=== PATIENT | male | born 1970 | race Caucasian/White ===

== ENCOUNTER 2018-04-12 18:52 | Inpatient (IN) | payer OTHER ==
[2018-04-12] MEDS ORDERED: ACETAMINOPHEN 325 MG TAB PO (20:00)
[2018-04-12] MEDS ORDERED: DEXTROSE 5%-0.45% NACL 1,000 ML IV (20:00)
[2018-04-12] MEDS ORDERED: ONDANSETRON 4 MG INJ IV (20:00)
[2018-04-12] MEDS ORDERED: ONDANSETRON 4 MG INJ (20:39)
[2018-04-12] MEDS: morphine 2 MG INJ IV (20:44)
[2018-04-12] MEDS: PANTOPRAZOLE 40 MG INJ IV (20:54)
[2018-04-12] MEDS: INSULIN ASPART [NOVOLOG] 3 ML PEN SC (21:00)
[2018-04-12] MEDS ORDERED: GLUCAGON 1 MG INJ IM (21:00)
[2018-04-12] MEDS ORDERED: GLUCOSE GEL 15 GRAM TUBE BUCCAL (21:00)
[2018-04-12] MEDS ORDERED: GLUCOSE GEL 15 GRAM TUBE PO ×2 (21:00)
[2018-04-12] MEDS: CEFTRIAXONE 1 GM/50 ML (PMX) 50 ML IVPB (21:00)
[2018-04-12] MEDS ORDERED: DEXTROSE 50% 50 ML SYRINGE IV ×2 (21:00)
[2018-04-12] MEDS: DEXTROSE 5%-0.9% NACL 1,000 ML IV (21:05)
[2018-04-12] MEDS: traZODone 100 MG TAB PO (21:45)
[2018-04-12] MEDS ORDERED: morphine LIQ (10 MG/5 ML) CUP PO (23:30)
[2018-04-13] MEDS: ACCU-CHEK XX (02:00)
[2018-04-13] MEDS: morphine 2 MG INJ IV ×4 (02:48→20:59)
[2018-04-13] MEDS: PANTOPRAZOLE 40 MG INJ IV (06:14)
[2018-04-13 06:15] LABS: ADD MAN DIFF? NO
[2018-04-13 06:23] LABS: WHITE BLOOD COUNT 4.7 10^3/ul (4.8-10.8)
[2018-04-13 06:23] LABS: BASOPHILS % 0.2 % (0.0-2.0); EOSINOPHILS # 0.1 10^3/ul (0.0-0.5); EOSINOPHILS % 2.8 % (0.0-7.0); HEMATOCRIT 35.5 % (42.0-52.0); HEMOGLOBIN 12.2 g/dl (14.0-18.0); LYMPHOCYTES # 1.1 10^3/ul (0.8-2.9); LYMPHOCYTES % 23.9 % (15.0-51.0); MEAN CORPUSCULAR HEMOGLOBIN 29.8 pg (29.0-33.0); MEAN CORPUSCULAR HGB CONC 34.4 g/dl (32.0-37.0); MEAN CORPUSCULAR VOLUME 86.8 fl (82.0-101.0); MEAN PLATELET VOLUME 11.1 fl (7.4-10.4); MONOCYTE # 0.5 10^3/ul (0.3-0.9); MONOCYTES % 9.8 % (0.0-11.0); NEUTROPHILS % 63.1 % (39.0-77.0); PLATELET COUNT 147 10^3/UL (140-415); RED BLOOD COUNT 4.09 10^6/ul (4.70-6.10); RED CELL DISTRIBUTION WIDTH 14.3 % (11.5-14.5)
[2018-04-13 06:55] LABS: ALANINE AMINOTRANSFERASE 275 IU/L (13-69); ALBUMIN 3.5 g/dl (3.3-4.9); ALBUMIN/GLOBULIN RATIO 0.87; ALKALINE PHOSPHATASE 1013 IU/L (42-121); ANION GAP 14 (8-16); ASPARTATE AMINO TRANSFERASE 126 IU/L (15-46); BILIRUBIN,INDIRECT 1.2 mg/dl (0-1.1); BILIRUBIN,TOTAL 1.9 mg/dl (0.2-1.3); BLOOD UREA NITROGEN 5 mg/dl (7-20); CALCIUM 9.6 mg/dl (8.4-10.2); CARBON DIOXIDE 31 mmol/L (21-31); CHLORIDE 95 mmol/L (97-110); CREATININE 0.53 mg/dl (0.61-1.24); GLUCOSE 217 mg/dl (70-220); POTASSIUM 3.6 mmol/L (3.5-5.1); SODIUM 136 mmol/L (135-144); TOTAL PROTEIN 7.5 g/dl (6.1-8.1)
[2018-04-13] MEDS: INSULIN ASPART [NOVOLOG] 3 ML PEN SC ×4 (08:24→20:51)
[2018-04-13] MEDS: DEXTROSE 5%-0.9% NACL 1,000 ML IV ×2 (11:18→11:55)
[2018-04-13] MEDS: DIPHENHYDRAMINE 50 MG INJ IV (12:49)
[2018-04-13 14:51] LABS: PROTIME 12.2 Sec (11.9-14.9)
[2018-04-13 15:23] LABS: CARCINOEMBRYONIC ANTIGEN 1.8 ng/ml (0.0-5.0)
[2018-04-13 15:26] LABS: ALPHA FETOPROTEIN 0.85 IU/L (0.00-7.21)
[2018-04-13] MEDS: PIPER-TAZO 3.375 GM IV (PMX) 100 ML IVPB ×2 (15:35→22:54)
[2018-04-13 16:30] LABS: PROSTATE SPECIFIC ANTIGEN 0.7 ng/ml (0.0-4.0)
[2018-04-13] MEDS ORDERED: MIDAZOLAM 1 MG/ML 2 ML INJ (18:18)
[2018-04-13] MEDS ORDERED: ROCURONIUM 50 MG INJ (18:18)
[2018-04-13] MEDS ORDERED: NEOSTIGMINE 3 MG/3 ML SYRINGE (18:18)
[2018-04-13] MEDS ORDERED: ONDANSETRON 4 MG INJ (18:18)
[2018-04-13] MEDS ORDERED: CEFAZOLIN 1 GM INJ (18:18)
[2018-04-13] MEDS ORDERED: FENTAnyl 50 MCG/ML VIAL (18:18)
[2018-04-13] MEDS ORDERED: GLYCOPYRROLATE 0.4 MG INJ (18:18)
[2018-04-13] MEDS ORDERED: PROPOFOL 20 ML (18:18)
[2018-04-13] MEDS ORDERED: DEXAMETHASONE 4 MG/ML 1 ML INJ (18:18)
[2018-04-13] MEDS ORDERED: TRIMETHOBENZAMIDE 100 MG/ML VIAL IM (18:30)
[2018-04-13] MEDS ORDERED: ONDANSETRON 4 MG INJ IV (18:30)
[2018-04-13] MEDS ORDERED: DIPHENHYDRAMINE 50 MG INJ IV (18:30)
[2018-04-13] MEDS ORDERED: OXYCODONE/ACETAMINOPHEN (5/325) TAB PO ×2 (18:30)
[2018-04-13] MEDS ORDERED: IPRATROPIUM (NEB) 0.5 MG/2.5 ML AMP HHN (18:30)
[2018-04-13] MEDS ORDERED: EPHEDrine SULFATE 50 MG/5 ML SYG IV (18:30)
[2018-04-13] MEDS ORDERED: LABETALOL HCL 20MG INJ IV (18:30)
[2018-04-13] MEDS ORDERED: HYDROmorphONE 1 MG/5 ML IV SYRINGE IV ×3 (18:30)
[2018-04-13] MEDS: INDOMETHACIN 50 MG SUPP PR (18:30)
[2018-04-13] MEDS ORDERED: hydrALAzine 20 MG INJ IV (18:30)
[2018-04-13] MEDS ORDERED: ALBUTEROL 0.083% (NEB) 2.5 MG/3 ML AMP HHN (18:30)
[2018-04-13] MEDS ORDERED: MIDAZOLAM 1 MG/ML 2 ML INJ IV (18:30)
[2018-04-13] MEDS ORDERED: FENTAnyl 50 MCG/ML VIAL IV ×3 (18:30)
[2018-04-13] MEDS ORDERED: MEPERIDINE 25 MG INJ IV (18:30)
[2018-04-13] MEDS ORDERED: SUGAMMADEX SODIUM 200 MG/2 ML VIAL IV (19:26)
[2018-04-13] MEDS: traZODone 100 MG TAB PO (22:55)
[2018-04-14] MEDS: ACCU-CHEK XX (02:00)
[2018-04-14] MEDS: PIPER-TAZO 3.375 GM IV (PMX) 100 ML IVPB ×3 (05:57→21:53)
[2018-04-14] MEDS: DEXTROSE 5%-0.9% NACL 1,000 ML IV (05:59)
[2018-04-14] MEDS: PANTOPRAZOLE 40 MG INJ IV (06:00)
[2018-04-14] MEDS: morphine 2 MG INJ IV ×3 (06:04→20:26)
[2018-04-14 08:07] LABS: ADD MAN DIFF? NO
[2018-04-14 08:15] LABS: HEMATOCRIT 36.1 % (42.0-52.0); HEMOGLOBIN 12.2 g/dl (14.0-18.0); LYMPHOCYTES # 0.7 10^3/ul (0.8-2.9); LYMPHOCYTES % 20.2 % (15.0-51.0); MEAN CORPUSCULAR HEMOGLOBIN 29.8 pg (29.0-33.0); MEAN CORPUSCULAR HGB CONC 33.8 g/dl (32.0-37.0); MEAN PLATELET VOLUME 11.2 fl (7.4-10.4); MONOCYTE # 0.2 10^3/ul (0.3-0.9); MONOCYTES % 7.2 % (0.0-11.0); NEUTROPHIL # 2.4 10^3/ul (1.6-7.5); PLATELET COUNT 158 10^3/UL (140-415); RED CELL DISTRIBUTION WIDTH 14.4 % (11.5-14.5)
[2018-04-14 08:15] LABS: WHITE BLOOD COUNT 3.3 10^3/ul (4.8-10.8)
[2018-04-14] MEDS: INSULIN ASPART [NOVOLOG] 3 ML PEN SC ×5 (08:23→20:20)
[2018-04-14 08:47] LABS: PHOSPHORUS 4.1 mg/dl (2.5-4.9)
[2018-04-14 08:47] LABS: MAGNESIUM 1.3 mg/dl (1.7-2.5)
[2018-04-14 08:48] LABS: ALANINE AMINOTRANSFERASE 190 IU/L (13-69); ALBUMIN 3.5 g/dl (3.3-4.9); ALBUMIN/GLOBULIN RATIO 0.97; ALKALINE PHOSPHATASE 859 IU/L (42-121); ANION GAP 16 (8-16); ASPARTATE AMINO TRANSFERASE 59 IU/L (15-46); BILIRUBIN,INDIRECT 0.8 mg/dl (0-1.1); BILIRUBIN,TOTAL 0.8 mg/dl (0.2-1.3); BLOOD UREA NITROGEN 10 mg/dl (7-20); CALCIUM 9.3 mg/dl (8.4-10.2); CARBON DIOXIDE 25 mmol/L (21-31); CHLORIDE 96 mmol/L (97-110); CREATININE 0.55 mg/dl (0.61-1.24); GLUCOSE 316 mg/dl (70-220); POTASSIUM 4.1 mmol/L (3.5-5.1); SODIUM 133 mmol/L (135-144); TOTAL PROTEIN 7.1 g/dl (6.1-8.1)
[2018-04-14] MEDS: MAGNESIUM OXIDE 400 MG TAB PO (12:12)
[2018-04-14] MEDS: metFORMIN 500 MG TAB PO (17:51)
[2018-04-14] MEDS: CREON (12k-38k-60k) 1 CAP PO ×2 (18:42→20:20)
[2018-04-14] MEDS: traZODone 100 MG TAB PO (21:53)
[2018-04-15] MEDS: ACCU-CHEK XX (01:03)
[2018-04-15] MEDS: morphine 2 MG INJ IV ×2 (04:38→11:49)
[2018-04-15] MEDS: PANTOPRAZOLE 40 MG INJ IV (05:54)
[2018-04-15] MEDS: PIPER-TAZO 3.375 GM IV (PMX) 100 ML IVPB ×2 (05:54→14:52)
[2018-04-15 06:08] LABS: ADD MAN DIFF? NO
[2018-04-15 06:15] LABS: BASOPHILS % 0.4 % (0.0-2.0); EOSINOPHILS # 0.2 10^3/ul (0.0-0.5); EOSINOPHILS % 3.4 % (0.0-7.0); HEMATOCRIT 34.2 % (42.0-52.0); HEMOGLOBIN 11.8 g/dl (14.0-18.0); LYMPHOCYTES # 1.8 10^3/ul (0.8-2.9); LYMPHOCYTES % 33.9 % (15.0-51.0); MEAN CORPUSCULAR HGB CONC 34.5 g/dl (32.0-37.0); MEAN PLATELET VOLUME 10.5 fl (7.4-10.4); MONOCYTE # 0.3 10^3/ul (0.3-0.9); MONOCYTES % 6.2 % (0.0-11.0); NEUTROPHILS % 55.7 % (39.0-77.0); PLATELET COUNT 195 10^3/UL (140-415); RED BLOOD COUNT 3.93 10^6/ul (4.70-6.10); RED CELL DISTRIBUTION WIDTH 14.4 % (11.5-14.5)
[2018-04-15 06:15] LABS: WHITE BLOOD COUNT 5.3 10^3/ul (4.8-10.8)
[2018-04-15 06:43] LABS: ALANINE AMINOTRANSFERASE 151 IU/L (13-69); ALBUMIN 3.5 g/dl (3.3-4.9); ALKALINE PHOSPHATASE 769 IU/L (42-121); ANION GAP 12 (8-16); ASPARTATE AMINO TRANSFERASE 48 IU/L (15-46); BILIRUBIN,INDIRECT 0.9 mg/dl (0-1.1); BILIRUBIN,TOTAL 0.9 mg/dl (0.2-1.3); BLOOD UREA NITROGEN 14 mg/dl (7-20); CALCIUM 9.5 mg/dl (8.4-10.2); CARBON DIOXIDE 30 mmol/L (21-31); CHLORIDE 97 mmol/L (97-110); CREATININE 0.59 mg/dl (0.61-1.24); GLUCOSE 266 mg/dl (70-220); POTASSIUM 4.2 mmol/L (3.5-5.1); SODIUM 135 mmol/L (135-144)
[2018-04-15] MEDS: CREON (12k-38k-60k) 1 CAP PO ×2 (08:09→12:27)
[2018-04-15] MEDS: metFORMIN 500 MG TAB PO (08:10)
[2018-04-15] MEDS: INSULIN ASPART [NOVOLOG] 3 ML PEN SC ×2 (08:14→12:28)
[2018-04-15] MEDS: glipiZIDE 10 MG TAB PO (12:27)
== END 2018-04-15 15:45 | disposition home or self-care (01) | DRG 920 ==
LOC: 2NE 18:52
PROVIDERS: Internal Medicine Nephrology
PROC: 0F798DZ Dilation of Common Bile Duct with Intraluminal Device, Via Natural or Artificial Opening Endoscopic (ICD-10-PCS; principal; 2018-04-13 18:28)
PROC: 0FC98ZZ Extirpation of Matter from Common Bile Duct, Via Natural or Artificial Opening Endoscopic (ICD-10-PCS; 2018-04-13 18:28)
DX: T85.79XA Infection and inflammatory reaction due to other internal prosthetic devices, implants and grafts, initial encounter (principal); K80.31 Calculus of bile duct with cholangitis, unspecified, with obstruction; D72.819 Decreased white blood cell count, unspecified; E11.9 Type 2 diabetes mellitus without complications; F41.9 Anxiety disorder, unspecified; F17.210 Nicotine dependence, cigarettes, uncomplicated; I10 Essential (primary) hypertension; M19.90 Unspecified osteoarthritis, unspecified site; R30.0 Dysuria; R39.11 Hesitancy of micturition; R63.4 Abnormal weight loss; R94.5 Abnormal results of liver function studies; Z68.20 Body mass index [BMI] 20.0-20.9, adult; Z96.89 Presence of other specified functional implants
CPT/HCPCS: 74330; 76856; 80053; 82105; 82378; 82962; 83036; 83735; 84100; 84153; 84154; 85025; 85610; 86301